=== PATIENT | male | born 1960 | race Caucasian/White ===

== ENCOUNTER 2020-08-22 02:43 | Emergency (ER) | payer BC ==
[2020-08-22] MEDS ORDERED: Sodium Chloride 0.9% 10 ML Syringe FLUSH PRN (03:28)
--- NOTE | 2020-08-22 03:41 | EDM.PDOC ---
ED HPI GENERAL MEDICAL PROBLEM - General Chief Complaint: Syncope Stated Complaint: Syncopal Episode Time Seen by Provider: 08/22/20 03:00 Source of Information: Reports: Patient, EMS History Limitations: Reports: No Limitations - History of Present Illness INITIAL COMMENTS - FREE TEXT/NARRATIVE: Pt. states that he is covid positive and has been ill for approx. 9 days. He states that he got out of bed and became lightheaded and had a syncopal episode after walking a short distance in his home. He states that he struck his head. He attempted to get up and again became lightheaded and had a second syncopal episode. He states that he did not have any chest pain. Denies any shortness of breath. Denies any palpitations. No nausea or vomiting. No diarrhea. Denies any injury elsewhere. Pt. states that he has been intermittently lightheaded for the past several days. states that he was diaphoretic after the incident. She did not notice any speech disturbances. Pt. denies any numbness/tingling in extremities or face. he been alert and oriented. Denies any neck, back or chest pain. He does complain of headache during this illness that was exacerbated by striking it this morning. His only other complaint is discomfort to his L lower extremity. He feels he may have injured it during the fall, and states that the discomfort in his leg is improving. Overall he offers no serious complaints, but is still lightheaded when sitting upright. Onset: Today Associated Symptoms: Reports: Cough, Diaphoresis, Fever/Chills, Headaches, Loss of Appetite, Malaise, Syncope, Weakness. Denies: Confusion, Chest Pain, cough w sputum, Nausea/Vomiting, Rash, Seizure, Shortness of Breath Left Calf Pain Score (Numeric/FACES): 2 - Related Data Allergies Allergy/AdvReac Type Severity Reaction Status Date / Time No Known Allergies Allergy Verified 08/22/20 06:13 Home Meds: Home Meds . [Unable to Verify Home Med List] 08/22/20 [History] ED ROS GENERAL - Review of Systems Review Of Systems: See Below Constitutional: Reports: Fever, Chills, Malaise, Weakness, Fatigue, Diaphoresis HEENT: Reports: No Symptoms Respiratory: Reports: Cough Cardiovascular: Reports: Lightheadedness, Syncope Endocrine: Reports: No Symptoms GI/Abdominal: Reports: No Symptoms : Reports: No Symptoms Musculoskeletal: Reports: Other (discomfort to posterior aspect of L lower extremity. He states that he was not experiencing any discomfort prior to the fall.) Skin: Reports: No Symptoms Neurological: Reports: No Symptoms Psychiatric: Reports: No Symptoms Hematologic/Lymphatic: Reports: No Symptoms Immunologic: Reports: No Symptoms ED EXAM, GENERAL - Physical Exam Exam: See Below Exam Limited By: No Limitations General Appearance: Alert, WD/WN, No Apparent Distress Eye Exam: Bilateral Eye: EOMI, Normal Fundi, Normal Inspection, PERRL Nose: Normal Inspection, Normal Mucosa, No Blood Throat/Mouth: Normal Inspection, Normal Lips, Normal Teeth, Normal Oropharynx, Normal Voice, No Airway Compromise Head: Atraumatic, Normocephalic Neck: Normal Inspection, Supple, Non-Tender Respiratory/Chest: No Respiratory Distress, Lungs Clear, Normal Breath Sounds, No Accessory Muscle Use, Chest Non-Tender Cardiovascular: Normal Peripheral Pulses, Regular Rate, Rhythm, No Edema, No JVD, No Murmur GI/Abdominal: Soft, Non-Tender, No Organomegaly, No Distention, No Mass (Male) Exam: Deferred Rectal (Males) Exam: Deferred Extremities: Normal Inspection, Normal Range of Motion, No Pedal Edema, Normal Capillary Refill Neurological: Alert, Oriented, CN II-XII Intact, Normal Cognition, Normal Gait, Normal Reflexes, No Motor/Sensory Deficits Psychiatric: Normal Affect, Normal Mood Skin Exam: Warm, Dry, Intact, Normal Color, No Rash Lymphatic: No Adenopathy #1 Interpretation Rhythm: NSR Maybell: Normal P-Wave: Present QRS: Normal ST-T: Normal QT: Normal Course - Vital Signs Last Recorded V/S: Last Vital Signs Temp 36.3 C 08/22/20 03:43 Pulse 74 08/22/20 03:43 Resp 16 08/22/20 03:43 BP 118/72 08/22/20 03:43 Pulse Ox 94 L 08/22/20 03:43 - Orders/Labs/Meds Orders: Active Orders 24 hr Category Date Time Status CULTURE BLOOD [BC] Stat Lab 08/22/20 03:10 Received CULTURE BLOOD [BC] Stat Lab 08/22/20 03:58 Received Blood Culture x2 Reflex Set [OM.PC] Stat Oth 08/22/20 03:30 Ordered Peripheral IV Insertion Adult [OM.PC] Routine Oth 08/22/20 03:29 Ordered Labs: Laboratory Tests 08/22/20 08/22/20 08/22/20 Range/Units 03:10 03:10 03:10 WBC 6.8 (4.0-10.0) x10^3/uL RBC 4.20 L (4.5-6.0) x10^6/uL Hgb 13.3 L (14.0-18.0) g/dL Hct 39.5 L (40.0-52.0) % MCV 94.0 H (78.0-93.0) fL MCH 31.7 (26.0-32.0) pg MCHC 33.7 (32.0-36.0) g/dL RDW Coeff of Melina 13.1 (10.0-15.0) % Plt Count 273 (130-400) x10^3/uL Neut % (Auto) 77.4 (50.0-80.0) % Lymph % (Auto) 13.8 L (25.0-50.0) % Hood % (Auto) 8.4 (2.0-11.0) % Eos % (Auto) 0.3 (0.0-4.0) % Baso % (Auto) 0.1 L (0.2-1.2) % PT 9.6 (9.5-12.3) SEC INR 0.9 L (2.0-3.5) Sodium 135 L (136-145) mmol/L Potassium 3.4 L (3.5-5.1) mmol/L Chloride 97 L (98-107) mmol/L Carbon Dioxide 23 (21-32) mmol/L Anion Gap 18.4 (10-20) mmol/L BUN 24 H (7-18) mg/dL Creatinine 1.3 (0.70-1.30) mg/dL Est Cr Clr Drug Dosing 60.43 mL/min Estimated GFR (MDRD) 56 Glucose 181 H (74-106) mg/dL Lactic Acid (0.4-2.0) mmol/L Calcium 8.5 (8.5-10.1) mg/dL Corrected Calcium 8.82 (8.5-10.1) mg/dL Magnesium 1.8 (1.8-2.4) mg/dL Total Bilirubin 0.3 (0.2-1.0) mg/dL AST 26 (15-37) U/L ALT 54 (16-63) U/L Alkaline Phosphatase 50 (46-116) U/L Lactate Dehydrogenase (85-227) U/L Troponin I < 0.017 (<=0.056) ng/mL C-Reactive Protein 1.6 H (<=0.9) mg/dL Total Protein 7.9 (6.4-8.2) g/dL Albumin 3.6 (3.4-5.0) g/dL Globulin 4.3 Albumin/Globulin Ratio 0.84 08/22/20 08/22/20 Range/Units 03:10 03:10 WBC (4.0-10.0) x10^3/uL RBC (4.5-6.0) x10^6/uL Hgb (14.0-18.0) g/dL Hct (40.0-52.0) % MCV (78.0-93.0) fL MCH (26.0-32.0) pg MCHC (32.0-36.0) g/dL RDW Coeff of Melina (10.0-15.0) % Plt Count (130-400) x10^3/uL Neut % (Auto) (50.0-80.0) % Lymph % (Auto) (25.0-50.0) % Hood % (Auto) (2.0-11.0) % Eos % (Auto) (0.0-4.0) % Baso % (Auto) (0.2-1.2) % PT (9.5-12.3) SEC INR (2.0-3.5) Sodium (136-145) mmol/L Potassium (3.5-5.1) mmol/L Chloride (98-107) mmol/L Carbon Dioxide (21-32) mmol/L Anion Gap (10-20) mmol/L BUN (7-18) mg/dL Creatinine (0.70-1.30) mg/dL Est Cr Clr Drug Dosing mL/min Estimated GFR (MDRD) Glucose (74-106) mg/dL Lactic Acid 2.2 H* (0.4-2.0) mmol/L Calcium (8.5-10.1) mg/dL Corrected Calcium (8.5-10.1) mg/dL Magnesium (1.8-2.4) mg/dL Total Bilirubin (0.2-1.0) mg/dL AST (15-37) U/L ALT (16-63) U/L Alkaline Phosphatase (46-116) U/L Lactate Dehydrogenase 199 (85-227) U/L Troponin I (<=0.056) ng/mL C-Reactive Protein (<=0.9) mg/dL Total Protein (6.4-8.2) g/dL Albumin (3.4-5.0) g/dL Globulin Albumin/Globulin Ratio Meds: Medications Discontinued Medications Generic Name Dose Route Start Last Admin Trade Name Freq PRN Reason Stop Dose Admin Sodium Chloride 1,000 mls @ 1,000 mls/hr 08/22/20 03:42 08/22/20 03:31 Normal Saline IV 08/22/20 04:41 1,000 mls/hr .BOLUS ONE Administration Sodium Chloride 10 ml 08/22/20 03:28 Saline Flush FLUSH ASDIRECTED PRN Keep Vein Open Departure - Departure Time of Disposition: 04:00 Disposition: Home, Self-Care 01 Clinical Impression: Syncope - Discharge Information Instructions: COVID-19 Frequently Asked Questions, Syncope, [id number] Referrals: Sudha Ramirez MD [Primary Care Provider] - Forms: ED Department Discharge Additional Instructions: Home to rest. Drink plenty of fluids. Tylenol and ibuprofen for fever/discomfort. Return to ER if you have any lightheadedness, chest pain, shortness of breath, or decreased level of consciousness. Recheck in clinic in 10 days. Sepsis Event Note (ED) - Focused Exam Vital Signs: Vital Signs Temp Pulse Resp BP Pulse Ox 08/22/20 03:43 36.3 C 74 16 118/72 94 L - My Orders Last 24 Hours: My Active Orders 08/22/20 03:10 CULTURE BLOOD [BC] Stat 08/22/20 03:29 Peripheral IV Insertion Adult [OM.PC] Routine 08/22/20 03:30 Blood Culture x2 Reflex Set [OM.PC] Stat 08/22/20 03:58 CULTURE BLOOD [BC] Stat - Assessment/Plan Last 24 Hours: My Active Orders 08/22/20 03:10 CULTURE BLOOD [BC] Stat 08/22/20 03:29 Peripheral IV Insertion Adult [OM.PC] Routine 08/22/20 03:30 Blood Culture x2 Reflex Set [OM.PC] Stat 08/22/20 03:58 CULTURE BLOOD [BC] Stat Plan: Home to rest. Drink plenty of fluids. Tylenol and ibuprofen for fever/discomfort. Return to ER if you have any lightheadedness, chest pain, shortness of breath, or decreased level of consciousness. Recheck in clinic in 10 days.
[2020-08-22] MEDS ORDERED: Sodium Chloride 0.9% 1,000 ML IV ONE (03:42)
[2020-08-22 04:00] LABS: CHLORIDE,CL 97 mmol/L (98-107); SODIUM,NA 135 mmol/L (136-145)
[2020-08-22 04:03] LABS: ANION GAP 18.4 mmol/L (10-20)
--- NOTE | 2020-08-22 07:02 | CR ---
[id number] RAD/RAD Chest Portable EXAM: RAD Chest Portable INDICATION: SYNCOPE, FELL, STRUCK HEAD COMPARISON: None. DISCUSSION: Cardiomediastinal silhouette is normal in size and contour. Lungs are clear. No pleural effusion or pneumothorax. IMPRESSION: Negative examination of the chest. Geoff Menendez MD 08/22/20 0701 Thank you for allowing us to participate in the care of your patient.
--- NOTE | 2020-08-22 10:14 | CT ---
[id number] CT/CT Head WO IV EXAM: CT Head WO IV CLINICAL DATA: SYNCOPE, FELL, STRUCK HEAD COMPARISON STUDY: None FINDINGS: No intracranial hemorrhage, extra-axial fluid collection, mass, or acute ischemia. No hydrocephalus. Calvarium intact. Paranasal sinus mucosal thickening. No air-fluid levels. Mastoid air cells are clear. IMPRESSION: No acute intracranial findings. Geoff Menendez MD 08/22/20 1013 Thank you for allowing us to participate in the care of your patient.
== END 2020-08-22 06:22 | disposition home or self-care (01) ==
LOC: VM.ED 02:43 → SUPCPDRO 02:43 → VM.ED 06:22
DX: R55 Syncope and collapse (principal); R05 Cough; R63.0 Anorexia; R68.83 Chills (without fever); R53.1 Weakness
CPT/HCPCS: 36415; 70450; 71045; 80053; 82962; 83605; 83615; 83735; 84484; 85025; 85610; 86140; 87040; 93005; 93010; 99284; 99285-25; J7030